=== PATIENT | male | born 1945 | race Caucasian/White ===

== ENCOUNTER → 2019-10-25 | Outpatient (CLI) | payer MEDICARE, OTHER ==
[~2019-10-25] MED LIST: DUTA0.5C PO; HYDR12.58 PO; IRBE300T23 PO; MULT-245 PO; OMEG100021 PO; OMEP20CA16 PO; TAMS0.4C97 PO
--- NOTE | 2019-10-25 17:22 | RAD ---
CT STUDY OF THE ABDOMEN AND PELVIS WITHOUT CONTRAST CLINICAL INDICATIONS: Microscopic hematuria. TECHNIQUE: Noncontrast helical CT scanning of the abdomen and pelvis was performed. Without contrast, the sensitivity to detect organ pathology and GI tract pathology is decreased. PQRS compliance Statement One or more of the following individualized dose reduction techniques were utilized for this study: 1. Automated exposure control 2. Adjustment of the mA and/or kV according to patient size 3. Use of iterative reconstruction technique COMPARISON: None available. FINDINGS: The liver and spleen are homogeneous in appearance on this noncontrast study. There is fatty atrophy of the head and neck of the pancreas. There is mild peripancreatic inflammation present consistent with pancreatitis. Small calcification of the head of the pancreas is seen which may be due to chronic pancreatitis or could be vascular in nature. No peripancreatic free fluid or pseudocyst is seen. Gallbladder is normal. No extra hepatic biliary ductal dilatation is seen. No adrenal mass is seen. Bilateral parapelvic cysts are seen within the kidneys. There is a simple cyst of the lower pole of the right kidney. This is an incidental finding and no further workup is needed. No hydroureter or renal stone or ureteral stone is evident. The left side of the anatomic pelvis is obscured due to streaking artifact from left hip arthroplasty. This obscures the distal left ureter and the left side of the urinary bladder and left side of the anatomic pelvis. No focal aneurysmal dilatation of the abdominal aorta is seen. No enlarged abdominal or pelvic lymphadenopathy is evident. Sigmoid diverticulosis is seen without diverticulitis. The appendix is normal. The terminal ileum is unremarkable. No obstructive bowel pattern is seen. No anterior abdominal wall hernia is seen. No free intraperitoneal air or free fluid is seen. No lung base consolidation is evident. No lytic process is seen. Grade 1 anterolisthesis of L5-S1 is seen secondary to facet arthropathy. IMPRESSION: Peripancreatic inflammation consistent with pancreatitis. No peripancreatic free fluid or pseudocyst is seen. No dilatation of the main pancreatic duct or extrahepatic bile duct is seen. Electronically signed by: Jass Martinez MD (10/25/2019 5:19 PM) [id number]
[2019-10-25 17:47] LABS: BASO % 0 % (0-3); EOS % 0 % (0-3); HEMOGLOBIN 15.3 g/dL (13.0-17.5); LYMPH # 1.9 x10^3/uL (1.0-4.8); LYMPH % 7 % (24-48); MEAN CORPUSCULAR HEMOGLOBIN 32 pg (25-35); MEAN CORPUSCULAR HGB CONC 33 g/dL (31-37); MEAN CORPUSCULAR VOLUME 95 fL (79-100); MONO # 2.4 x10^3/uL (0.0-1.1); MONO % 9 % (0-9); NEUT # 22.9 x10^3uL (1.8-7.7); NEUT % 84 % (31-73); PLATELET COUNT 253 x10^3/uL (140-400); RED BLOOD COUNT 4.84 x10^6/uL (4.30-5.70); RED CELL DISTRIBUTION WIDTH 13.7 % (11.5-14.5); WHITE BLOOD COUNT 27.4 x10^3/uL (4.0-11.0)
[2019-10-25 18:11] LABS: ALBUMIN 3.1 g/dL (3.4-5.0); ALBUMIN/GLOBULIN RATIO 0.6 (1.0-1.7); CALCIUM 9.6 mg/dL (8.5-10.1); GFR 32.8; POTASSIUM 3.9 mmol/L (3.5-5.1); TOTAL BILIRUBIN 1.8 mg/dL (0.2-1.0)
[2019-10-25 19:53] LABS: % BANDS 2 % (0-9); % LYMPHS 8 % (24-48); % MONOS 7 % (0-10); % SEGS 83 % (35-66)
[2019-10-25 19:54] LABS: PLT ESTIMATE ADEQUATE (ADEQUATE)
== END | disposition home or self-care (01) ==
LOC: CT 16:21
PROVIDERS: ATTEND Family Medicine
DX: K85.90 Acute pancreatitis without necrosis or infection, unspecified (principal); K86.89 Other specified diseases of pancreas; N28.1 Cyst of kidney, acquired; K57.30 Diverticulosis of large intestine without perforation or abscess without bleeding; M43.17 Spondylolisthesis, lumbosacral region; M47.817 Spondylosis without myelopathy or radiculopathy, lumbosacral region
CPT/HCPCS: 36415; 74176; 80053; 83690; 85007; 85025

== ENCOUNTER 2019-10-27 10:27 | Inpatient (IN) | payer MEDICARE, OTHER ==
[~2019-10-27] VITALS: Ht 172.7 cm; Wt 86.1 kg
[2019-10-27 11:35] VITALS: BP 134/67
[2019-10-27] MEDS ORDERED: MORPHINE SULFATE 2 MG/ML DISP.SYRIN. IV PRN (11:45)
[2019-10-27] MEDS ORDERED: IV 1/2 NORMAL SALINE 1,000 ML IV PRN (11:45)
[2019-10-27] MEDS ORDERED: BISACODYL 10 MG/30 ML ENEMA PR ONE (11:45)
[2019-10-27] MEDS ORDERED: ZOLPIDEM 5 MG TABLET. PO PRN (11:45)
[2019-10-27 12:12] LABS: BASO % 0 % (0-3); EOS # 0.3 x10^3/uL (0.0-0.7); EOS % 2 % (0-3); HEMOGLOBIN 15.1 g/dL (13.0-17.5); LYMPH # 1.1 x10^3/uL (1.0-4.8); LYMPH % 7 % (24-48); MEAN CORPUSCULAR HEMOGLOBIN 32 pg (25-35); MEAN CORPUSCULAR HGB CONC 34 g/dL (31-37); MEAN CORPUSCULAR VOLUME 95 fL (79-100); MONO # 1.1 x10^3/uL (0.0-1.1); MONO % 7 % (0-9); NEUT # 14.1 x10^3uL (1.8-7.7); NEUT % 84 % (31-73); PLATELET COUNT 254 x10^3/uL (140-400); RED BLOOD COUNT 4.75 x10^6/uL (4.30-5.70); RED CELL DISTRIBUTION WIDTH 13.3 % (11.5-14.5); WHITE BLOOD COUNT 16.7 x10^3/uL (4.0-11.0)
[2019-10-27] MEDS ORDERED: ONDANSETRON PF 4 MG/2 ML VIAL. IVP PRN (12:15)
--- NOTE | 2019-10-27 12:23 | NUR ---
The patient, DOUG VO, 74 y/o, M admitted by SRINIVAS CARBAJAL MD, was given written information regarding hospital policies, unit procedures and contact persons. Valuables were checked and documented. pt escorted from front via wheelchair. pt stable but complains of left upper abdominal pain starting friday. pt reports noticing blood in urine on friday but since s it has decreased in blood. reports unable to have a bowel movement for several days and has not ate since Friday due to feeling of bloat and not hungry. medications verified with pt and will continue to monitor. Tim JEAN
[2019-10-27 12:24] LABS: ALBUMIN 2.9 g/dL (3.4-5.0); ALBUMIN/GLOBULIN RATIO 0.7 (1.0-1.7); CALCIUM 9.2 mg/dL (8.5-10.1); CREATININE 1.2 mg/dL (0.7-1.3); GFR 59.2; POTASSIUM 3.3 mmol/L (3.5-5.1); TOTAL BILIRUBIN 1.8 mg/dL (0.2-1.0); TOTAL PROTEIN 7.2 g/dL (6.4-8.2)
[2019-10-27] MEDS: IV NORMAL SALINE 1,000ML 1,000 ML IV SCH ×2 (12:58→21:37)
--- NOTE | 2019-10-27 13:00 | NUR ---
discussed the enema with pt and informed him that it was ordered and that we could wait until the xrays resulted and pt stated that he would like to do so. Holding off on the enema at this time. Tim JEAN
[2019-10-27 13:06] LABS: % BANDS 2 % (0-9); % BASOS 1 % (0-3); % EOS 3 % (0-5); % LYMPHS 10 % (24-48); % MONOS 3 % (0-10); % SEGS 81 % (35-66); PLT ESTIMATE ADEQUATE (ADEQUATE)
--- NOTE | 2019-10-27 13:06 | RAD ---
EXAM: CHEST PA LATERAL, ABDOMEN SUPINE UPRIGHT INDICATION: Reason: SHORTNESS OF BREATH / Spl. Instructions: / History: . TECHNIQUE: PA and lateral views COMPARISON: Abdomen and pelvis CT of 10/25/2019 FINDINGS: The heart size is normal. The great vessels appear unremarkable. There is no hilar or mediastinal mass. The lungs show subtle groundglass opacity in the peripheral left inferior lung.. There is no pleural effusion or pneumothorax. There are no significant osseous abnormalities. IMPRESSION: Subtle groundglass opacity in the inferior lateral left lung. Correlate for any evidence of early atypical pneumonia. PROCEDURE: CHEST PA LATERAL, ABDOMEN SUPINE UPRIGHT CLINICAL INDICATION / HISTORY: Reason: SHORTNESS OF BREATH / Spl. Instructions: / History: . TECHNIQUE: Single AP image of the abdomen was obtained. COMPARISON: Abdomen pelvis CT of 10/25/2019 FINDINGS: The included lung bases are clear. A nonobstructive bowel gas pattern is present. No organomegaly or pathologic calcifications are identified. No acute osseous abnormality. Left total hip arthroplasty. IMPRESSION: No acute abdominal process. Electronically signed by: Freda Farrar MD (10/27/2019 1:03 PM) [id number]
[2019-10-27 13:07] LABS: TOXIC GRANULATION PRESENT; TOXIC VACUOLATION PRESENT
[2019-10-27 13:21] LABS: POLYCHROMASIA PRESENT
[2019-10-27] MEDS ORDERED: IRBE300T23 PO (15:55)
[2019-10-27] MEDS ORDERED: TAMS0.4C97 PO (15:55)
[2019-10-27] MEDS ORDERED: OMEG100021 PO (15:55)
[2019-10-27] MEDS ORDERED: MULT-245 PO (15:55)
[2019-10-27] MEDS ORDERED: HYDR12.58 PO (15:55)
[2019-10-27] MEDS ORDERED: OMEP20CA16 PO (15:55)
[2019-10-27] MEDS ORDERED: DUTA0.5C PO (15:55)
--- NOTE | 2019-10-27 16:20 | NUR ---
Dr Nash notified of groundglass opacity finding on chest xray, elevated D-Dimer and WBC count; ordered for covid-19 swab and now PUI. nursing final assembly and packing supervisor notified. moved to ICU room 5 for negative air flow room. brought pt in wheelchair with all belongings to ICU. report given to Kusum JEAN and Lauren JEAN. Tim JEAN
--- NOTE | 2019-10-27 16:39 | NUR ---
Pt transferred to ICU-05 via wheelchair, was able to ambulate from chair to bed without issue. Pt belongings include watch, cell phone w roving winder. pt attempted to urinate without success, urinal provided and patient understands nursing to collect urine sample. COVID swab collected and sent to lab at 1645. VS obtained. Pt oriented to room, and is resting in bed. Addendum: 10/27/19 at 1643 by JAMI HARKINS RN Pt belongings also include wedding band.
[2019-10-27 17:11] VITALS: BP 129/78
[2019-10-27 19:28] VITALS: BP 141/77
[2019-10-27] MEDS: DOCUSATE SODIUM 100 MG CAPSULE PO SCH (21:16)
[2019-10-27] MEDS ORDERED: HYDROcodone/APAP 7.5/325MG 1 TAB TABLET PO PRN (21:30)
[2019-10-27 22:30] VITALS: BP 147/68
[2019-10-27 23:45] LABS: BACTERIA,URINE 0 /HPF (0-FEW); BILIRUBIN,URINE NEG (NEG); CLARITY,URINE CLEAR; COLOR,URINE YELLOW; GLUCOSE,URINE NEG (NEG); NITRITE,URINE NEG (NEG); RBC,URINE 0 /HPF (0-2); UROBILINOGEN,URINE 0.2 mg/dL (0.2 mg/dL); WBC,URINE RARE /HPF (0-4)
[2019-10-28 06:55] LABS: BASO % 0 % (0-3); EOS # 0.3 x10^3/uL (0.0-0.7); EOS % 2 % (0-3); HEMATOCRIT 42.9 % (39.0-53.0); HEMOGLOBIN 14.3 g/dL (13.0-17.5); LYMPH # 1.4 x10^3/uL (1.0-4.8); LYMPH % 10 % (24-48); MEAN CORPUSCULAR HEMOGLOBIN 31 pg (25-35); MEAN CORPUSCULAR HGB CONC 33 g/dL (31-37); MEAN CORPUSCULAR VOLUME 95 fL (79-100); MONO # 1.2 x10^3/uL (0.0-1.1); MONO % 9 % (0-9); NEUT # 10.4 x10^3uL (1.8-7.7); NEUT % 78 % (31-73); PLATELET COUNT 227 x10^3/uL (140-400); RED BLOOD COUNT 4.53 x10^6/uL (4.30-5.70); RED CELL DISTRIBUTION WIDTH 13.5 % (11.5-14.5); WHITE BLOOD COUNT 13.4 x10^3/uL (4.0-11.0)
[2019-10-28 07:54] LABS: ALBUMIN 2.2 g/dL (3.4-5.0); ALBUMIN/GLOBULIN RATIO 0.5 (1.0-1.7); CALCIUM 8.6 mg/dL (8.5-10.1); POTASSIUM 3.3 mmol/L (3.5-5.1); TOTAL BILIRUBIN 1.1 mg/dL (0.2-1.0); TOTAL PROTEIN 6.7 g/dL (6.4-8.2)
[2019-10-28 07:55] VITALS: BP 134/64
[2019-10-28] MEDS: IV NORMAL SALINE 1,000ML 1,000 ML IV SCH ×2 (08:43→20:39)
[2019-10-28] MEDS: DOCUSATE SODIUM 100 MG CAPSULE PO SCH ×2 (08:43→20:39)
[2019-10-28] MEDS ORDERED: BISACODYL 10 MG SUPP.RECT PR ONE (09:15)
[2019-10-28] MEDS ORDERED: INSULIN LISPRO 300 UNITS/3 ML VIAL. SQ ONE (09:15)
[2019-10-28] MEDS: POLYETHYLENE GLYCOL 3350 17 GM PACKET. PO SCH (09:45)
[2019-10-28] MEDS ORDERED: ELECTROLYTE (NON-ICU) PROTOCOL MC PRN (09:45)
[2019-10-28 13:33] VITALS: BP 136/70
[2019-10-28] MEDS: hydroCHLOROthiazide 12.5 MG CAPSULE PO SCH (13:48)
[2019-10-28 15:30] LABS: FECAL OB PT NEGATIVE (NEG)
--- NOTE | 2019-10-28 18:35 | NUR ---
Orders for CTAngio STAT- Radiology called to assess pt PIV status, CTA requires 20g. This nurse attempted PIV stick X2 in R AC- unable to obtain IV access. Nursing office supervisor called to request IV start.
[2019-10-28 19:00] VITALS: BP 138/67
[2019-10-28] MEDS ORDERED: IOHEXOL 350 MG/ML 100 ML VIAL. IV ONE (19:15)
[2019-10-28] MEDS ORDERED: CONTRAST GIVEN. MC PRN (19:30)
[2019-10-28] MEDS: FAMOTIDINE 20 MG TABLET PO SCH (20:39)
--- NOTE | 2019-10-28 20:59 | RAD ---
CTA chest with contrast dated 10/28/2019. No comparison available. CLINICAL INDICATION: Shortness of breath. Positive d-dimer. History pancreatitis. TECHNIQUE: Contiguous axial imaging of the chest performed following the intravenous administration of 98 cc Isovue-370. Study was performed as dedicated PE protocol with thin cut coronal MIPS 3-D reconstruction. One or more of the following individualized dose reduction techniques were utilized for this examination: 1. Automated exposure control 2. Adjustment of the mA and/or kV according to patient size 3. Use of iterative reconstruction technique. FINDINGS: Contrast bolus is adequate. No evidence of central, lobar or segmental pulmonary embolus. Subsegmental branches are not well evaluated based on technique. Heart size is within normal limits. No pericardial effusion. Coronary artery calcifications. There are borderline enlarged mediastinal and hilar lymph nodes. Prevascular lymph node measures up to 8 mm short axis. Right hilar lymph node measures 10 mm short axis. No axillary adenopathy. Thyroid gland unremarkable. Central airways are patent. Mild diffuse bronchial wall thickening. Lungs are clear. No consolidation or pleural effusion. No pneumothorax. Images of the upper abdomen show mild inflammatory stranding around the pancreatic body and tail. No focal fluid collection. No apparent biliary ductal dilatation. Prominent bilateral parapelvic renal cysts. Bone windows show no acute findings. Mild multilevel spondylosis. IMPRESSION: 1. No evidence of central, lobar or segmental pulmonary embolus. 2. Findings consistent with acute pancreatitis. Correlate with clinical and laboratory results. 3. Clear lungs. 4. Coronary artery calcifications. 5. Borderline enlarged mediastinal and right hilar lymph nodes, nonspecific. Electronically signed by: Dilshad Perea MD (10/28/2019 8:55 PM) JON
--- NOTE | 2019-10-28 21:17 | PN ---
DATE: 10/28/2019 SUBJECTIVE: The patient is resting, apparently from his acute pancreatitis. His white count has come down to 13, resting fairly comfortably. He is on clear liquids now, he is on electrolyte replacement. Coags were elevated at 3.375. The patient's COVID-19 not detected. The D-dimer (NC). The patient will go ahead and get a CTA of his chest to be on the safe side and Dopplers noted. Stool occult negative. Urine unremarkable. The patient continued to be monitored carefully. OBJECTIVE: LUNGS: Clear. CARDIOVASCULAR: Stable. ABDOMEN: Soft, nontender, not complaining of chest pain or shortness of breath, but at the same time with a D-dimer, we will evaluate that further. IMPRESSION: Acute pancreatitis, elevated D-dimer. PLAN: Continue to monitor the patient accordingly, make further evaluation on him as indicated. SRINIVAS CARBAJAL MD DR: JASS/dillon JOB#: [id number] / [id number]
[2019-10-28 22:58] VITALS: BP 135/71
[2019-10-29] MEDS: IV NORMAL SALINE 1,000ML 1,000 ML IV SCH ×2 (05:46→14:15)
[2019-10-29 06:05] VITALS: BP 127/63
[2019-10-29] MEDS: DOCUSATE SODIUM 100 MG CAPSULE PO SCH ×2 (09:03→20:25)
[2019-10-29] MEDS: hydroCHLOROthiazide 12.5 MG CAPSULE PO SCH (09:03)
[2019-10-29] MEDS: POLYETHYLENE GLYCOL 3350 17 GM PACKET. PO SCH (09:03)
[2019-10-29] MEDS: LOSARTAN 50 MG TABLET. PO SCH (09:04)
[2019-10-29] MEDS: FAMOTIDINE 20 MG TABLET PO SCH ×2 (09:04→20:25)
[2019-10-29 09:30] VITALS: BP 144/74
--- NOTE | 2019-10-29 10:18 | RAD ---
Bilateral lower extremity venous doppler ultrasound History: Bilateral lower extremity pain and swelling Comparison: None Findings: Multiple grayscale, color, and duplex spectral analysis sonographic images were acquired of the bilateral lower extremity veins to evaluate for the presence of DVT. There is normal phasicity. Normal compression, color-flow, and augmentation is demonstrated from the bilateral common femoral to the popliteal veins. There is normal color flow of the proximal greater saphenous and profunda femoris veins. There is normal color flow of segments of the calf veins. Impression: 1. There is no evidence of deep venous thrombosis from the bilateral common femoral to the popliteal veins. Electronically signed by: Everardo Hearn MD (10/29/2019 10:15 AM) [id number]
[2019-10-29 15:01] VITALS: BP 127/64
--- NOTE | 2019-10-29 17:15 | NUR ---
pt eager to go home. States he is feeling better. Had another BM this morning. pt also sat in chair a few times today. Today started a soft diet from being on a clear liquid diet and is tolerating well. No complaints. Tim JEAN
[2019-10-29 19:00] VITALS: BP 131/81
[2019-10-29] MEDS: LACTOBACILLUS RHAMNOSUS GG 1 CAPSULE. PO SCH (20:25)
--- NOTE | 2019-10-29 21:12 | PN ---
DATE: SUBJECTIVE: The patient in with acute pancreatitis. The patient's CT scan still shows significant pancreatitis, still advancing his diet very slowly and like. OBJECTIVE: VITAL SIGNS: Blood pressure that of 127/64, respiratory rate 14, pulse 80, afebrile, 95% oxygen saturation. LUNGS: Diminished, but basically clear. CARDIOVASCULAR: Regular sinus rhythm. ABDOMEN: Protuberant, soft, still some tenderness, but improved. CTA was negative. EXTREMITIES: Negative for clots. LABORATORY DATA: The patient's white count 13, hemoglobin 14.2. PLAN: The patient continued to be monitored carefully, make further evaluation. Advance diet slowly to prevent reoccurrence and make further evaluation on him as indicated. IMPRESSION: Acute pancreatitis. PLAN: As above. SRINIVAS CARBAJAL MD DR: JASS/dillon JOB#: [id number] / [id number]
[2019-10-30] MEDS: IV NORMAL SALINE 1,000ML 1,000 ML IV SCH ×2 (00:39→10:15)
[2019-10-30 06:29] VITALS: BP 155/85
[2019-10-30 08:00] VITALS: BP 138/78
--- NOTE | 2019-10-30 08:14 | RAD ---
ABDOMEN COMPLETE History: Reason: abd pain / Spl. Instructions: / History: Comparison: October 25, 2019 Technique: Sonographic examination of the abdomen was performed and multiple grayscale and color Doppler static images were obtained. Findings: Liver demonstrates increased echogenicity. The liver measures 17.9 cm. Portal flow is patent. Common bile duct measures 5 mm in diameter. Gallbladder sludge. No cholelithiasis or pericholecystic fluid. Visualized pancreas is not well seen due to overlying bowel gas. The right kidney measures 10.0 x 6.2 x 6.4 cm. No hydronephrosis. Parapelvic renal cyst. Cortical cyst measures 2.2 x 1.6 cm. The left kidney measures 11.5 x 6.0 x 8.0 cm. No hydronephrosis. Multiple parapelvic left renal cysts, unchanged compared to recent CT. The spleen measures 10.8 cm. Visualized portions of the abdominal aorta and IVC are normal. IMPRESSION: 1. Gallbladder sludge. 2. Increased hepatic echotexture, may indicate steatosis. 3. Bilateral parapelvic and right cortical renal cyst. No follow-up imaging is recommended per consensus recommendations based on imaging criteria. Electronically signed by: Aníbal Ward DO (10/30/2019 8:11 AM) [facility]
[2019-10-30] MEDS: FAMOTIDINE 20 MG TABLET PO SCH (08:48)
[2019-10-30 08:49] VITALS: BP 155/85
[2019-10-30] MEDS: hydroCHLOROthiazide 12.5 MG CAPSULE PO SCH (08:49)
[2019-10-30] MEDS: LACTOBACILLUS RHAMNOSUS GG 1 CAPSULE. PO SCH (08:49)
[2019-10-30] MEDS: DOCUSATE SODIUM 100 MG CAPSULE PO SCH ×2 (08:49→08:53)
[2019-10-30] MEDS: LOSARTAN 50 MG TABLET. PO SCH (08:49)
[2019-10-30] MEDS: POLYETHYLENE GLYCOL 3350 17 GM PACKET. PO SCH ×2 (08:50→08:53)
--- NOTE | 2019-10-30 11:51 | NUR ---
IV dc to R AC. No redness or bleeding. Discussed DC plan. Pt to f/u PCP. Belonging sent with pt. to transport pt to home.
== END 2019-10-30 12:07 | disposition home or self-care (01) | DRG 438 ==
LOC: 1 SOUTH 10:35 → ICU 16:33
PROVIDERS: ADMIT Family Medicine; ATTEND Family Medicine
DX: K85.00 Idiopathic acute pancreatitis without necrosis or infection (principal); E43 Unspecified severe protein-calorie malnutrition; R31.29 Other microscopic hematuria; Z20.828 Contact with and (suspected) exposure to other viral communicable diseases; Z88.8 Allergy status to other drugs, medicaments and biological substances; Z79.899 Other long term (current) drug therapy; I10 Essential (primary) hypertension; K21.9 Gastro-esophageal reflux disease without esophagitis; E78.00 Pure hypercholesterolemia, unspecified; N40.0 Benign prostatic hyperplasia without lower urinary tract symptoms; K59.00 Constipation, unspecified; E86.0 Dehydration; D72.829 Elevated white blood cell count, unspecified
CPT/HCPCS: 36415; 71046; 71275; 74019; 76700; 80053; 81001; 82150; 82274; 82550; 83605; 83690; 84484; 85007; 85025; 85379; 87040; 93970; J1815; J1956; J3490; Q9967; J7030; U0003-CS